=== PATIENT | female | born 1980 | race African-American/Black ===

== ENCOUNTER 2016-10-12 14:34 | Emergency (ER) | payer BC ==
[~2016-10-12] VITALS: Ht 177.8 cm; Wt 78.5 kg
--- NOTE | ~2016-10-12 | CT98 ---
[facility] A Service of [facility] & [facility] RADIOLOGY TEXT RESULTS PATIENT: BENITEZ UGALDE LOCATION: [facility]FT[facility] : 78 UNIT #: [id number] AGE: [address]: Chastity Charlton SEX: F ORDER DR: [id number] [facility] [address] [place], [place] [address] [id number] E MR#: [id number] #: [id number] NAME: BENITEZ UGALDE : 1980 SEX: F STUDY DATE/TIME: 10/12/2016 16:52 UNIT: [facility] ROOM: STUDY DESCRIPTION: CT Lumbar Spine Wo Cont Attending Physician: Chastity Charlton P.A.-C. Ordering Physician: Chastity Charlton P.A.-C. Primary Care Physician: Mary Martinez M.D. MEDICAL IMAGING REPORT This report is preliminary unless electronic signature is present EXAM CT lumbar spine without contrast, 10/12/2016 HISTORY 36-year-old female with low back pain radiating down the right lower extremity for 1 week status post fall. COMPARISONS Lumbar spine x-rays 10/12/2016. TECHNIQUE Helical scan performed through the lumbar spine without IV contrast. Coronal and sagittal reformatted images. This CT exam was performed with one or more of the following radiation dose reduction techniques: Automatic exposure control, adjustment of mA and/or kV according to patient size, and iterative reconstruction. FINDINGS No evidence of acute fracture or subluxation. Vertebral body heights and alignment are normally maintained. Disc spaces and facets are within normal limits. There appears to be a posterior disc protrusion at L3-4 producing mild central canal stenosis and bilateral neural foraminal narrowing. This may be better characterized with non-emergent lumbar spine MRI when the patient is clinically able. Small posterior disc protrusions at L4-5 and L5-S1 are suspected. No significant canal or foraminal stenosis at these levels. Paravertebral soft tissues are unremarkable. IMPRESSION 1. No acute lumbar spine injury. 2. Suspected small posterior disc protrusions at L3-4, L4-5, and L5-S1. There appears to be mild central canal stenosis and bilateral neural foraminal narrowing at L3-4. Suggest further evaluation with [facility]. [facility] A Service of [facility] & [facility] RADIOLOGY TEXT RESULTS PATIENT: BENITEZ UGALDE LOCATION: [facility] : 78 UNIT #: [id number] AGE: [address]: Chastity Charlton SEX: F ORDER DR: a non-emergent lumbar spine MRI when the patient is clinically able for better evaluation of the soft discs. Dictated by... Yvon Apodaca M.D. THIS IS AN ELECTRONICALLY VERIFIED REPORT Yvon Apodaca M.D. at 10/13/2016 2:38 PM EFREM/narciso TD: 10/13/2016 03:40 JOB #: [id number] MEDICAL IMAGING REPORT Page 1 of 1 COPY
--- NOTE | ~2016-10-12 | CR181 ---
[facility] A Service of [facility] RADIOLOGY TEXT RESULTS PATIENT: BENITEZ UGALDE LOCATION: [facility] : 78 UNIT #: [id number] AGE: [address]: Chastity Charlton SEX: F ORDER DR: [id number] [facility] [address] [place], [place] [address] [id number] E MR#: [id number] Acc #: [id number] NAME: BENITEZ UGALDE : 1980 SEX: F STUDY DATE/TIME: 10/12/2016 15:32 UNIT: [facility] ROOM: STUDY DESCRIPTION: CR Lumbar Spine 2 or 3 Views Attending Physician: Chastity Charlton P.A.-C. Ordering Physician: Chastity Charlton P.A.-C. Primary Care Physician: Mary Martinez M.D. MEDICAL IMAGING REPORT This report is preliminary unless electronic signature is present EXAM Lumbar spine, 3 views. HISTORY Back pain for 5 days after fall. FINDINGS Three views of the lumbar spine demonstrate an approximately 1 cm faint posteriorly convex calcification along the posterior margin of the L3-L4 disc space. This could be a partly calcified disc protrusion but is difficult to characterize on this study. Consider further evaluation with MRI lumbar spine or CT lumbar spine when clinically appropriate. Lumbar alignment is satisfactory. No fracture or disc space narrowing or subluxation. Tubal ligation clips in the pelvis. Dictated by... Bentley Galarza M.D. THIS IS AN ELECTRONICALLY VERIFIED REPORT Bentley Galarza M.D. at 10/13/2016 11:30 PM SHERRY/martha TD: 10/13/2016 00:25 JOB #: [id number] MEDICAL IMAGING REPORT Page 1 of 1 COPY
== END 2016-10-12 17:25 | disposition home or self-care (01) ==
LOC: CED 14:34 → CFTX 14:34
DX: M51.16 Intervertebral disc disorders with radiculopathy, lumbar region (principal); Z85.850 Personal history of malignant neoplasm of thyroid; F17.210 Nicotine dependence, cigarettes, uncomplicated; Z98.890 Other specified postprocedural states
CPT/HCPCS: 72100; 72131; 96372; 99284; J1885